=== PATIENT | female | born 1995 | race African-American/Black ===

== ENCOUNTER 2022-02-26 13:32 | Emergency (ER) | payer OTHER ==
[2022-02-26 13:55] VITALS: BP 126/73; PULSE 90; RESP 20; TEMP 98.6; BMI 26.2
[2022-02-26] MEDS ORDERED: ACETAMINOPHEN 1000 MG/100 ML BAG IVPB ONE (14:38)
[2022-02-26] MEDS ORDERED: ACETAMINOPHEN INJECTION 100 ML IVPB ONE (14:48)
[2022-02-26 16:05] LABS: BASO % 0.4 % (0-2.0); EOS % 0.4 % (0-4.5); HEMOGLOBIN 14.4 GM/dL (10.7-15.3); LYMPH % 21.1 % (8-40); MCH 32.5 pg (25.7-33.7); MCHC 34.3 g/dl (32.0-36.0); MEAN CELL VOLUME 94.7 fl (80-96); MEAN PLT VOLUME 8.6 fl (7.5-11.1); MONO % 6.3 % (3.8-10.2); NEUT % 71.8 % (42.8-82.8); PLATELET COUNT 344 10^3/uL (134-434); RBC 4.43 M/mm3 (3.60-5.2); RDW 15.3 % (11.6-15.6); WHITE BLOOD COUNT 7.2 K/mm3 (4.0-10.0)
[2022-02-26 16:23] LABS: INR 0.96 (0.83-1.09)
[2022-02-26 16:26] LABS: ACTIVATED PTT 28.6 SECONDS (25.2-36.5)
[2022-02-26 16:32] LABS: EPI CELLS 9 /uL (0-25.1); HYALINE CASTS 0 /uL (0-3.1); URINE APPEARANCE CLEAR; URINE BACTERIA 146 /uL (0-1359); URINE BILIRUBIN NEGATIVE (NEGATIVE); URINE COLOR YELLOW; URINE GLUCOSE (UA) NEGATIVE (NEGATIVE); URINE KETONE NEGATIVE (NEGATIVE); URINE LEUK ESTERASE NEGATIVE (NEGATIVE); URINE NITRITE NEGATIVE (NEGATIVE); URINE PROTEIN NEGATIVE (NEGATIVE); URINE RBC 153 /uL (0-23.9); URINE UROBILINOGEN 0.2 mg/dL (0.2-1.0); URINE WBC 7 /uL (0-25.8)
[2022-02-26 16:35] LABS: CHLORIDE 104 mmol/L (98-107); SODIUM 136 mmol/L (136-145)
[2022-02-26 16:37] LABS: ALBUMIN 3.7 g/dl (3.4-5.0); BLOOD UREA NITROGEN 9.8 mg/dL (7-18); CALCIUM 8.9 mg/dL (8.5-10.1); CO2 25 mmol/L (21-32); GLUCOSE,RANDOM 85 mg/dL (74-106)
[2022-02-26 16:39] LABS: CREATININE 0.7 mg/dL (0.55-1.3)
[2022-02-26 16:42] LABS: BILIRUBIN,TOTAL 0.3 mg/dL (0.2-1); TOT PROT 8.5 g/dl (6.4-8.2)
[2022-02-26 16:43] LABS: ALK PHOS 132 U/L (45-117)
[2022-02-26 16:48] LABS: ANION GAP 7 MMOL/L (8-16); SGOT/AST 90 U/L (15-37); SGPT/ALT 39 U/L (13-61)
[2022-02-26 18:11] LABS: CALCIUM 8.8 mg/dL (8.5-10.1)
[2022-02-26 18:13] LABS: BLOOD UREA NITROGEN 8.4 mg/dL (7-18)
[2022-02-26 18:16] LABS: CREATININE 0.5 mg/dL (0.55-1.3)
[2022-02-26] MEDS ORDERED: METHOTREXATE SODIUM/PF 25 MG/ML VIAL IM ONE ×3 (19:37→20:30)
[2022-02-26] MEDS ORDERED: IBUPROFEN 400 MG TABLET (FP) PO ONE ×2 (20:14→20:33)
[2022-02-26] MEDS ORDERED: FOLIC ACID 1 MG TABLET (FP) PO ONE (20:14)
[2022-02-26] MEDS ORDERED: FOLIC ACID 1 MG TABLET (FP) ONE (20:33)
== END 2022-02-26 22:17 | disposition home or self-care (01) ==
LOC: JER 13:32
PROC: 3E033GC Introduction of Other Therapeutic Substance into Peripheral Vein, Percutaneous Approach (ICD-10-PCS; principal; 2022-02-26)
PROC: 3E023GC Introduction of Other Therapeutic Substance into Muscle, Percutaneous Approach (ICD-10-PCS; principal; 2022-02-26)
DX: O20.9 Hemorrhage in early pregnancy, unspecified (principal); Z3A.00 Weeks of gestation of pregnancy not specified
CPT/HCPCS: 36415; 76817-TC; 80048; 80053; 81003; 84702; 85025; 85610; 85730; 86850; 86900; 86901; 87086; 99284-25; J9260